=== PATIENT | male | born 1960 | race Caucasian/White ===

== ENCOUNTER 2016-09-20 18:55 | Emergency (ER) | payer OTHER ==
[2016-09-20] MEDS ORDERED: Sodium Chloride 0.9% 1000 ML 1,000 ML IV STA (19:30)
[2016-09-20] MEDS ORDERED: solu-MEDROL 125 MG IV ONE (19:30)
[2016-09-20] MEDS ORDERED: BENADRYL 50 MG/ML IM ONE (19:30)
[2016-09-20] MEDS ORDERED: solu-MEDROL 125 MG ONE (19:33)
[2016-09-20] MEDS ORDERED: BENADRYL 50 MG/ML ONE (19:33)
[2016-09-20] MEDS ORDERED: Sodium Chloride 0.9% 1000 ML 1,000 ML ONE (19:34)
--- NOTE | 2016-09-20 19:38 | ERPHSYRPT ---
- History of Present Illness Time Seen by Provider: 09/20/16 19:27 Source: patient Exam Limitations: no limitations Patient Subjective Stated Complaint: pt states he was out mowing the yard today and thinks he got bit by a bug. states he has had pins and needles sensation in his lip where he has swelling. Triage Nursing Assessment: pt alert and oriented, answers qeustions approp. pt ambulatory with steady gait noted. respirations nonlabored with lungs cta. mild swelling noted to rt upper lip. Physician History: 56-year-old white male arrives with complaint of swelling of his right upper lip and feeling tingling across his upper body since approximately one hour ago patient states he was mowing he went to shower and that he began to have the above symptoms he is noted to have swelling in his right upper lip he feels like he perhaps has been bitten by something. Patient has not had any problems moving he has no chest pain he states he has a tingling sensation across his upper body including his head is not having any speech problems he has not had any chest pain. He is not short of breath Past medical history includes hypercholesterolemia, anxiety, depression, high blood presure Past surgical history includes hemorrhoidectomy and appendectomy Timing/Duration: today (one hour prior to arrival) Modifying Factors: Improves With: other (patient was out mowing today prior to onset of symptoms) Associated Symptoms: malaise, other (swelling right upper lip, feels leg tingling upper body), No nausea, No vomiting, No abdominal pain, No shortness of breath, No heartburn, No cough, No chills, No chest pain, No fever, No headaches, No loss of appetite, No rash, No syncope, No seizure, No weakness Allergies/Adverse Reactions: No Known Drug Allergies Allergy (Verified 09/20/16 19:12) Home Medications: Aspirin [Aspirin EC] 81 mg PO DAILY 12/05/14 [History] Glyburide 5 mg [Micronase 5 MG] 0 mg PO BID 09/20/16 [History] Lisinopril 10 mg [Zestril 10 MG] 0 mg PO DAILY 09/20/16 [History] Hx Tetanus, Diphtheria Vaccination/Date Given: Yes Hx Influenza Vaccination/Date Given: No Hx Pneumococcal Vaccination/Date Given: Yes Immunizations Up to Date: Yes - Review of Systems Constitutional: No Fever, No Chills Eyes: No Symptoms Ears, Nose, & Throat: Other (swelling right upper lip), No Ear Pain, No Ear Discharge, No Hearing Changes, No Tinnitus, No Nose Pain, No Nose Congestion, No Nose Discharge, No Sinus Drainage, No Epistaxis, No Mouth Pain, No Mouth Swelling, No Loose Teeth, No Throat Pain, No Throat Swelling, No Hoarse, No Painful Swallowing, No Snoring, No Stridor Respiratory: No Cough, No Dyspnea Cardiac: No Chest Pain, No Edema, No Syncope Abdominal/Gastrointestinal: No Abdominal Pain, No Nausea, No Vomiting, No Diarrhea Genitourinary Symptoms: No Dysuria Musculoskeletal: No Back Pain, No Neck Pain Skin: No Rash Neurological: Other (tingling sensation upper body), No Dizziness, No Focal Weakness, No Gait Changes, No Headache, No Irritability, No Lethargy, No Paralysis, No Parasthesia, No Seizure, No Sensory Changes, No Speech Changes, No Tics, No Tremors, No Vertigo Psychological: No Symptoms Endocrine: No Symptoms All Other Systems: Reviewed and Negative - Past Medical History Pertinent Past Medical History: Yes Neurological History: No Pertinent History ENT History: No Pertinent History Cardiac History: High Cholesterol, Hypertension Respiratory History: No Pertinent History Endocrine Medical History: No Pertinent History Musculoskeletal History: No Pertinent History GI Medical History: Hemorrhoids History: No Pertinent History Psycho-Social History: Anxiety, Depression Male Reproductive Disorders: No Pertinent History - Past Surgical History Past Surgical History: Yes Neuro Surgical History: No Pertinent History Cardiac: No Pertinent History Respiratory: No Pertinent History Gastrointestinal: Appendectomy, Hemorrhoidectomy Genitourinary: No Pertinent History Musculoskeletal: No Pertinent History Male Surgical History: No Pertinent History - Social History Smoking Status: Never smoker Exposure to second hand smoke: No Drug Use: none Patient Lives Alone: Yes - Nursing Vital Signs Nursing Vital Signs: Initial Vital Signs Temperature 98.0 F Temperature Source Oral Pulse Rate 84 Respiratory Rate 18 Blood Pressure [Right Arm] 136/86 Pain Intensity 0 - Physical Exam General Appearance: no apparent distress, alert Eye Exam: PERRL/EOMI, eyes nml inspection Ears, Nose, Throat Exam: TMs normal, pharynx normal, moist mucous membranes, other (slight swelling right upper lip), No dry mucous membranes, No TM abnormal (R), No TM abnormal (L), No pharyngeal erythema, No tonsillar exudate Neck Exam: normal inspection, non-tender, supple, full range of motion Respiratory Exam: normal breath sounds, lungs clear, No respiratory distress Cardiovascular Exam: regular rate/rhythm, normal heart sounds, normal peripheral pulses Gastrointestinal/Abdomen Exam: soft, normal bowel sounds, No tenderness, No mass Back Exam: normal inspection, normal range of motion, No CVA tenderness, No vertebral tenderness Extremity Exam: normal inspection, normal range of motion, pelvis stable Neurologic Exam: alert, oriented x 3, cooperative, normal mood/affect, nml cerebellar function, nml station & gait, sensation nml, other (finger to nose within normal limits, user experience architect are equal and symmetrical 5/5 no pronator drift speech is normal, sensation intact to all extremities no motor deficits), No motor deficits Skin Exam: normal color, warm, dry, No rash Lymphatic Exam: No adenopathy SpO2 Interpretation: normal (96%) SpO2: 96 Oxygen Delivery: Room Air - Course Nursing assessment & vital signs reviewed: Yes EKG Interpreted by Me: RATE (77 bpm), Sinus Rhythm, NORMAL AXIS, Other (EKG, sinus rhythm, 77 beats per minute, normal axis, no acute ST or T wave changes, compared to December 05, 2014) Ordered Tests: Active Orders 24 hr Category Date Time Status EKG-ER Only STAT Care 09/20/16 19:30 Active IV Insertion STAT Care 09/20/16 19:30 Active BMP Stat Lab 09/20/16 19:55 Completed CBC W DIFF Stat Lab 09/20/16 19:55 Completed TROPONIN Stat Lab 09/20/16 19:55 Completed Medication Summary Discontinued Medications Generic Name Dose Route Start Last Admin Trade Name Stoney PRN Reason Stop Dose Admin Diphenhydramine HCl 50 mg 09/20/16 19:30 09/20/16 19:38 Benadryl 50 Mg/Ml IM 09/20/16 19:31 50 mg STAT ONE Administration Diphenhydramine HCl Confirm 09/20/16 19:33 Benadryl 50 Mg/Ml Administered 09/20/16 19:34 Dose 50 mg .ROUTE .STK-MED ONE Sodium Chloride 1,000 mls @ 999 mls/hr 09/20/16 19:30 09/20/16 19:38 Sodium Chloride 0.9% 1000 Ml IV 09/20/16 20:30 999 mls/hr .Q1H1M STA Administration Sodium Chloride Confirm 09/20/16 19:34 Sodium Chloride 0.9% 1000 Ml Administered 09/20/16 19:35 Dose 1,000 mls @ ud .ROUTE .STK-MED ONE Methylprednisolone Sodium Succinate 125 mg 09/20/16 19:30 09/20/16 19:39 Solu-Medrol 125 Mg IV 09/20/16 19:31 125 mg STAT ONE Administration Methylprednisolone Sodium Succinate Confirm 09/20/16 19:33 Solu-Medrol 125 Mg Administered 09/20/16 19:34 Dose 125 mg .ROUTE .STK-MED ONE Lab/Rad Data: Laboratory Result Diagrams 09/20/16 19:55 09/20/16 19:55 Laboratory Results 09/20/16 09/20/16 09/20/16 Range/Units 19:55 19:55 19:55 WBC 8.5 (4.0-10.5) K/mm3 RBC 4.87 (4.1-5.6) M/mm3 Hgb 14.7 (12.5-18.0) gm/dl Hct 43.3 (42-50) % MCV 88.9 (78-100) fl MCH 30.2 (26-32) pg MCHC 33.9 (32-36) g/dl RDW 13.6 (11.5-14.0) % Plt Count 211 (150-450) K/mm3 MPV 10.3 H (6-9.5) fl Gran % 52.6 (36.0-66.0) % Lymphocytes % 33.7 (24.0-44.0) % Monocytes % 9.7 (0.0-12.0) % Eosinophils % 3.6 (0.00-5.0) % Basophils % 0.4 (0.0-0.4) % Basophils # 0.03 (0-0.4) Sodium 140 (136-145) mEq/L Potassium 4.2 (3.5-5.1) mEq/L Chloride 104 (98-107) mEq/L Carbon Dioxide 29.2 (21-32) mEq/L Anion Gap 10.8 (5-15) MEQ/L BUN 15 (9-20) mg/dL Creatinine 1.19 (0.55-1.30) mg/dl Estimated GFR > 60 ML/MIN Glucose 230 H (70-110) MG/DL Calcium 9.0 (8.5-10.1) mg/dL Troponin I < 0.017 (0.000-0.056) ng/ml - Progress Progress: improved Progress Note: 09/20/16 19:36 56-year-old white male arrives with complaint of swelling of the upper lip he states that he was out mowing today he went in the shower and as noted that his right upper lip was swollen he started having tingling on his upper body is not having any chest pain no shortness of breath he is not vomiting he has no movement disorder speech disorder Patient does have a mild amount of swelling in the upper lip he feels perhaps she was bitten by something. Will go ahead and give patient IV fluids have nurses check orthostatic vital signs check CBC BMP and troponin Will give patient Benadryl and Solu-Medrol 09/20/16 20:33 Patient's labs are all normal except exception of a glucose of 230 patient states he has a history of diabetes. Patient was given one shot of Solu-Medrol Also given Benadryl 50 mg IM Patient states he had a second of sharp pain on the top of his head no other symptoms neurologically the patient is normal. I've discussed the patient's laboratory findings with him he has received IV fluids he is stable EKG is normal troponin is normal. I asked patient if there is anything else I could do for him. He doesn't want anything Will discharge patient Benadryl 25-50 mg orally every 6 hours plenty of fluids Tylenol every 4-6 hours as needed for pain. Cold packs to the right lip 24-48 hours (intermittent0 Follow-up with Dr. Crabtree his family doctor. Return for acute distress or for severe symptoms. - Departure Time of Disposition: 20:35 Departure Disposition: Home Clinical Impression: swelling right upper lip, Insect bite right upper lip, Paresthesia Condition: Fair Critical Care Time: No Instructions: Insect Bites and Stings Additional Instructions: Return home. Cold packs right upper lip 24-48 hours. Benadryl 25-50 mg orally every 6 hours as needed. Plenty of fluids. Follow-up with your family doctor. Return for acute distress or for severe symptoms.Will one more Tylenol every 4 hours as needed forpain.
[2016-09-20 19:59] LABS: BASOPHIL % 0.4 % (0.0-0.4); Eosinophil % 3.6 % (0.00-5.0); Granulocytes % 52.6 % (36.0-66.0); Lymphocytes % 33.7 % (24.0-44.0); Mean Cell Volume 88.9 fl (78-100); Mean Corpuscular Hemoglobin 30.2 pg (26-32); Mean Platelet Volume 10.3 fl (6-9.5); Monocytes % 9.7 % (0.0-12.0); Platelet Count 211 K/mm3 (150-450); Red Blood Count 4.87 M/mm3 (4.1-5.6); Red Cell Distribution Width 13.6 % (11.5-14.0); White Blood Count 8.5 K/mm3 (4.0-10.5)
[2016-09-20 20:17] LABS: ANION GAP 10.8 MEQ/L (5-15); BLOOD UREA NITROGEN 15 mg/dL (9-20); CHLORIDE 104 mEq/L (98-107); Carbon Dioxide 29.2 mEq/L (21-32); Glucose 230 MG/DL (70-110); Potassium 4.2 mEq/L (3.5-5.1); SODIUM 140 mEq/L (136-145)
[2016-09-20 20:45] VITALS: BP 122/70; PULSE 75; O2SAT 100
== END 2016-09-20 20:45 | disposition home or self-care (01) ==
LOC: ED 18:55
DX: S00.561A Insect bite (nonvenomous) of lip, initial encounter (principal); W57.XXXA Bitten or stung by nonvenomous insect and other nonvenomous arthropods, initial encounter; R22.9 Localized swelling, mass and lump, unspecified; R20.9 Unspecified disturbances of skin sensation
CPT/HCPCS: 36000; 36415; 80048; 84484; 85025; 93005; 96360; 96372; 96374; 99284; J1200; J2930

== ENCOUNTER 2020-11-13 07:49 | Observation (INO) | payer MEDICAID ==
[2020-11-13] MEDS ORDERED: BABY ASPIRIN 81 MG CHEW PO ONE (08:05)
--- NOTE | 2020-11-13 08:09 | ERPHSYRPT ---
- History of Present Illness Time Seen by Provider: 11/13/20 07:51 Historian: patient Exam Limitations: no limitations Patient Subjective Stated Complaint: pt here for chest pain to left side of chest this am while driving to work, he states pain is gone now Triage Nursing Assessment: pt alert, resp easy, face mask in place, skin w/d/p Physician History: 60 years old male with history of hypertension, hyperlipidemia, diabetes mellitus presented in the ER with sudden onset left-sided chest pain almost 3 hours ago while he was walking at home and later while driving to work without any radiation, feeling of tightness pressure in the chest and started to improve on its own and currently not having any chest pain. Denies any associated nausea palpitations or shortness of breath. No cardiac work-up done in the [facility]. Timing/Duration: hour(s) (3), sudden, improved Activities at Onset: activity Quality: pressure Chest Pain Radiation: no radiation Severity of Pain-Max: moderate Severity of Pain-Current: none Modifying Factors: Improves With: nothing Associated Symptoms: denies symptoms Prior Chest Pain/Cardiac Workup: no prior cardiac workup Nitro Today/Relief: no nitro taken today Aspirin Treatment Today: 81 mg x 1 Allergies/Adverse Reactions: No Known Drug Allergies Allergy (Verified 11/13/20 07:57) Home Medications: Aspirin [Aspirin EC] 81 mg PO DAILY 12/05/14 [History] Lisinopril 10 mg [Zestril 10 MG] 0 mg PO DAILY 09/20/16 [History] Metoprolol Succinate [Toprol Xl] 1 ea DAILY 11/13/20 [History] Hx Tetanus, Diphtheria Vaccination/Date Given: No Hx Influenza Vaccination/Date Given: No Hx Pneumococcal Vaccination/Date Given: No Immunizations Up to Date: Yes Travel Risk - International Travel Have you traveled outside of the country in past 3 weeks: No - Coronavirus Screening Are you exhibiting any of the following symptoms?: No Close contact with a COVID-19 positive Pt in past 14-21 Days: No - Vaccine Status Have you recieved a Covid-19 vaccination: No - Review of Systems Constitutional: No Symptoms Eyes: No Symptoms Ears, Nose, & Throat: No Symptoms Respiratory: No Symptoms Cardiac: Chest Pain Abdominal/Gastrointestinal: No Symptoms Genitourinary Symptoms: No Symptoms Musculoskeletal: No Symptoms Skin: No Symptoms Neurological: No Symptoms Psychological: No Symptoms Endocrine: No Symptoms Hematologic/Lymphatic: No Symptoms Immunological/Allergic: No Symptoms - Past Medical History Pertinent Past Medical History: Yes Neurological History: No Pertinent History ENT History: No Pertinent History Cardiac History: High Cholesterol, Hypertension Respiratory History: No Pertinent History Endocrine Medical History: No Pertinent History Musculoskeletal History: No Pertinent History GI Medical History: Hemorrhoids History: No Pertinent History Psycho-Social History: Anxiety, Depression Male Reproductive Disorders: No Pertinent History - Past Surgical History Past Surgical History: Yes Neuro Surgical History: No Pertinent History Cardiac: No Pertinent History Respiratory: No Pertinent History Gastrointestinal: Appendectomy Genitourinary: No Pertinent History Musculoskeletal: No Pertinent History Male Surgical History: No Pertinent History - Social History Smoking Status: Never smoker Exposure to second hand smoke: No Drug Use: none Patient Lives Alone: Yes - Nursing Vital Signs Nursing Vital Signs: Initial Vital Signs Temperature 96.8 F 11/13/20 07:51 Pulse Rate 64 11/13/20 07:51 Respiratory Rate 18 11/13/20 07:51 Blood Pressure 125/76 11/13/20 07:51 O2 Sat by Pulse Oximetry 98 11/13/20 07:51 Pain Scale Pain Intensity 0 - Physical Exam General Appearance: no apparent distress, alert Eye Exam: PERRL/EOMI, eyes nml inspection Ears, Nose, Throat Exam: normal ENT inspection, pharynx normal Neck Exam: normal inspection, non-tender, supple, full range of motion Respiratory Exam: normal breath sounds, lungs clear Cardiovascular Exam: regular rate/rhythm, normal heart sounds Gastrointestinal/Abdomen Exam: soft, No tenderness Back Exam: normal inspection, normal range of motion Extremity Exam: normal inspection, normal range of motion Neurologic Exam: alert, oriented x 3, cooperative Skin Exam: normal color SpO2 Interpretation: normal SpO2: 98 O2 Delivery: Room Air - Course EKG Interpreted by Me: RATE (64), Sinus Rhythm, NORMAL AXIS, NORMAL INTERVALS, NORMAL QRS Ordered Tests: Active Orders 24 hr Category Date Time Status E/M Engineer STAT Care 11/13/20 08:06 Active EKG-ER Only STAT Care 11/13/20 08:05 Active IV Insertion STAT Care 11/13/20 08:05 Active CHEST 1 VIEW (PORTABLE) Stat Exams 11/13/20 08:06 Completed CBC W DIFF Stat Lab 11/13/20 08:00 Completed CMP Stat Lab 11/13/20 08:00 Completed NT PRO BNP Stat Lab 11/13/20 08:00 Completed TROPONIN Q3H Lab 11/13/20 08:00 Completed TROPONIN Q3H Lab 11/13/20 11:09 Received TROPONIN Q3H Lab 11/13/20 14:15 Ordered TROPONIN Q3H Lab 11/13/20 17:15 Ordered TROPONIN Q3H Lab 11/13/20 20:15 Ordered Transfer Order Routine Transfer 11/13/20 Ordered Medication Summary Discontinued Medications Generic Name Dose Route Start Last Admin Trade Name Stoney PRN Reason Stop Dose Admin Aspirin 243 mg 11/13/20 08:05 11/13/20 08:14 Baby Aspirin 81 Mg Chew PO 11/13/20 08:06 243 mg STAT ONE Administration Lab/Rad Data: Laboratory Result Diagrams 11/13/20 08:00 11/13/20 08:00 Laboratory Results 11/13/20 11/13/20 11/13/20 Range/Units 09:56 08:00 08:00 WBC (4.0-10.5) K/mm3 RBC (4.1-5.6) M/mm3 Hgb (12.5-18.0) gm/dl Hct (42-50) % MCV (78-100) fl MCH (26-32) pg MCHC (32-36) g/dl RDW (11.5-14.0) % Plt Count (150-450) K/mm3 MPV (7.5-11.0) fl Gran % (36.0-66.0) % Eos # (Auto) (0-0.5) Absolute Lymphs (auto) (1.0-4.6) Absolute Monos (auto) (0.0-1.3) Lymphocytes % (24.0-44.0) % Monocytes % (0.0-12.0) % Eosinophils % (0.00-5.0) % Basophils % (0.0-0.4) % Absolute Granulocytes (1.4-6.9) Basophils # (0-0.4) Sodium 138 (137-145) mmol/L Potassium 4.2 (3.5-5.1) mmol/L Chloride 104 (98-107) mmol/L Carbon Dioxide 23 (22-30) mmol/L Anion Gap 15.2 H (5-15) MEQ/L BUN 13 (9-20) mg/dL Creatinine 0.77 (0.66-1.25) mg/dL Estimated GFR > 60.0 ML/MIN Glucose 141 H (74-106) mg/dL Calcium 8.8 (8.4-10.2) mg/dL Total Bilirubin 0.50 (0.2-1.3) mg/dL AST 33 (17-59) U/L ALT 20 (0-50) U/L Alkaline Phosphatase 55 (38-126) U/L Troponin I < 0.012 (0.000-0.034) ng/mL NT-Pro-B Natriuret Pep 70.3 (0-900) pg/mL Serum Total Protein 7.8 (6.3-8.2) g/dL Albumin 4.0 (3.5-5.0) g/dL SARS-CoV-2 (PCR) NEGATIVE (NEGATIVE) 11/13/20 Range/Units 08:00 WBC 6.9 (4.0-10.5) K/mm3 RBC 4.89 (4.1-5.6) M/mm3 Hgb 15.1 (12.5-18.0) gm/dl Hct 45.4 (42-50) % MCV 92.8 (78-100) fl MCH 30.9 (26-32) pg MCHC 33.3 (32-36) g/dl RDW 13.3 (11.5-14.0) % Plt Count 235 (150-450) K/mm3 MPV 10.3 (7.5-11.0) fl Gran % 60.3 (36.0-66.0) % Eos # (Auto) 0.26 (0-0.5) Absolute Lymphs (auto) 1.76 (1.0-4.6) Absolute Monos (auto) 0.68 (0.0-1.3) Lymphocytes % 25.7 (24.0-44.0) % Monocytes % 9.9 (0.0-12.0) % Eosinophils % 3.8 (0.00-5.0) % Basophils % 0.3 (0.0-0.4) % Absolute Granulocytes 4.14 (1.4-6.9) Basophils # 0.02 (0-0.4) Sodium (137-145) mmol/L Potassium (3.5-5.1) mmol/L Chloride (98-107) mmol/L Carbon Dioxide (22-30) mmol/L Anion Gap (5-15) MEQ/L BUN (9-20) mg/dL Creatinine (0.66-1.25) mg/dL Estimated GFR ML/MIN Glucose (74-106) mg/dL Calcium (8.4-10.2) mg/dL Total Bilirubin (0.2-1.3) mg/dL AST (17-59) U/L ALT (0-50) U/L Alkaline Phosphatase (38-126) U/L Troponin I (0.000-0.034) ng/mL NT-Pro-B Natriuret Pep (0-900) pg/mL Serum Total Protein (6.3-8.2) g/dL Albumin (3.5-5.0) g/dL SARS-CoV-2 (PCR) (NEGATIVE) - Progress Progress: improved Air Movement: good Progress Note: 11/13/20 09:49 EKG is normal sinus rhythm. Patient is given 243 aspirin as he has 81 mg prior to arrival. Initial troponins are negative. Chest x-ray negative for any acute cardiopulmonary findings. Grossly unremarkable chemistries. Discussed with Dr. Melara, patient is being admitted for trending cardiac enzyme and further work-up. Blood Culture(s) Obtained: No Antibiotics given: No Discussed with : Romulo Will see patient in: hospital (observation) Counseled pt/family regarding: lab results, diagnosis, rad results - Departure Departure Disposition: Observation Clinical Impression: Chest pain, rule out acute myocardial infarction Condition: Stable Critical Care Time: No Referrals: AVE MELARA [Primary Care Provider] -
[2020-11-13 08:14] LABS: Absolute Neutrophil Ct (ANC) 4.14 (1.4-6.9); BASOPHIL % 0.3 % (0.0-0.4); Basophil (Absolute #) 0.02 (0-0.4); Eosinophil % 3.8 % (0.00-5.0); Eosinophil (Absolute #) 0.26 (0-0.5); Hematocrit 45.4 % (42-50); Hemoglobin 15.1 gm/dl (12.5-18.0); Lymphocyte (Absolute #) 1.76 (1.0-4.6); Lymphocytes % 25.7 % (24.0-44.0); Mean Cell Volume 92.8 fl (78-100); Mean Corpuscular Hemoglobin 30.9 pg (26-32); Mean Corpuscular Hgb Concent. 33.3 g/dl (32-36); Mean Platelet Volume 10.3 fl (7.5-11.0); Monocyte (Absolute #) 0.68 (0.0-1.3); Monocytes % 9.9 % (0.0-12.0); Neutrophil % 60.3 % (36.0-66.0); Platelet Count 235 K/mm3 (150-450); Red Blood Count 4.89 M/mm3 (4.1-5.6); Red Cell Distribution Width 13.3 % (11.5-14.0); White Blood Count 6.9 K/mm3 (4.0-10.5)
[2020-11-13 08:38] LABS: ALKALINE PHOSPHATASE 55 U/L (38-126); BLOOD UREA NITROGEN 13 mg/dL (9-20); CHLORIDE 104 mmol/L (98-107); Calcium 8.8 mg/dL (8.4-10.2); Carbon Dioxide 23 mmol/L (22-30); Creatinine 1 0.77 mg/dL (0.66-1.25); EST GLOMERULAR FILTRATION RATE > 60.0 ML/MIN; Glucose 141 mg/dL (74-106); NT PRO BNP 70.3 pg/mL (0-900); Potassium 4.2 mmol/L (3.5-5.1); SGOT/AST 33 U/L (17-59); SGPT/ALT 20 U/L (0-50); Total Protein 7.8 g/dL (6.3-8.2)
[2020-11-13 08:55] LABS: SODIUM 138 mmol/L (137-145)
--- NOTE | 2020-11-13 09:11 | XRAY ---
Indication: Chest pain. Comparison: December 05, 2014. Portable apical lordotic chest remains clear. Heart not enlarged. Bony thorax intact. No new/acute findings.
[2020-11-13 09:48] LABS: ANION GAP 15.2 MEQ/L (5-15)
[2020-11-13 12:27] VITALS: PULSE 66; O2SAT 97
[2020-11-13] MEDS ORDERED: TYLENOL 325 MG PO PRN (12:44)
[2020-11-13] MEDS ORDERED: HUMALOG SQ PRN (12:44)
[2020-11-13] MEDS ORDERED: DUONEB 0.5-3 MG/3 ml Neb IH PRN (12:44)
[2020-11-13] MEDS ORDERED: Zofran 4 MG/2 ML VIAL IV PRN (12:44)
[2020-11-13] MEDS ORDERED: Pepcid 20 MG VIAL IV SCH (12:44)
[2020-11-13] MEDS ORDERED: MORPHINE SULFATE 2 MG INJ IV PRN (12:44)
[2020-11-13 13:27] VITALS: BP 122/72
--- NOTE | 2020-11-13 15:44 | SSS ---
ADMISSION DIAGNOSIS: Chest pain. DISCHARGE DIAGNOSIS: CHEST WALL PAIN. HISTORY: The patient is a 60 year-old white male patient who reports that he was having some chest discomfort in the left upper side in the pectoralis area that lasted for about 2 hours and went away on its own. By the time he reached the emergency room he was pain free. The patient reports that he has been having intermittent pains that he has been experiencing since he is now at work and he is working differently than he has in the past and he really thinks that doing the dishes at work is causing his issues and I tend to agree from what I have heard from the patient and no previous history of any heart issues. He has mild hypertension. PAST MEDICAL/SURGICAL HISTORY: The patient's past medical history is otherwise noncontributory. MEDICATIONS: He is on enteric coated aspirin 81 mg daily, lisinopril 10 mg a day, metoprolol XL 25 mg a day. ALLERGIES: NKDA. FAMILY HISTORY: Noncontributory. PHYSICAL EXAMINATION: His vital signs show temperature 96.8F, pulse 64, respiratory rate 18 and blood pressure 125/76. O2 saturation 98%. HEENT: Normocephalic, atraumatic. Pupils equal round reactive to light. Extraocular movements intact. Oropharynx is pink and moist. NECK: Supple without lymphadenopathy, thyromegaly or JVD. CHEST: Clear to auscultation with good air movement bilaterally. HEART: Regular rate and rhythm without murmurs, rubs or gallops. ABDOMEN: Soft. No palpable masses. EXTREMITIES: Without cyanosis, clubbing or edema. LAB DATA AND TESTS: The patient's laboratory studies have shown normal CBC. His metabolic panel showed a nonfasting sugar at 141 but otherwise entirely normal with a BUN of 13, creatinine 0.77. His liver enzymes were normal. ProBNP was normal. His troponins at this time x3 have been less than 0.12. He had x-rays showing no acute findings. His EKG 12-lead showed what appears to be left axis deviation but otherwise no acute ST-T findings and good R-wave progression across the precordial lead, essentially no acute changes were noted either. HOSPITAL COURSE: The patient has been monitored for the past several hours with again negative troponins x3 and currently with no chest pain whatsoever. He was felt to be ready for discharge home again with the likely diagnosis of chest wall pain. However, we will increase his metoprolol to 50 mg a day and give him sublingual nitroglycerin to use on a PRN basis. We will see him in the office in three days in follow up at which time we will decide whether we want to move forward with any other cardiac testing. The patient was asked not to work until he is seen again in the office on Monday. He is return to the hospital if he has any chest pain that was not taken care of by the sublingual nitroglycerin particularly if he had heaviness in the chest, pressure with any radiation, sweats or nausea.
== END 2020-11-13 16:20 | disposition home or self-care (01) ==
LOC: ED 07:49 → MED SURG 12:36
PROVIDERS: ADMIT Family Medicine; ATTEND Family Medicine
DX: R07.89 Other chest pain (principal); I10 Essential (primary) hypertension; E11.9 Type 2 diabetes mellitus without complications; E78.5 Hyperlipidemia, unspecified; Z79.899 Other long term (current) drug therapy; E78.00 Pure hypercholesterolemia, unspecified; Z20.828 Contact with and (suspected) exposure to other viral communicable diseases
CPT/HCPCS: 36000; 36415; 71045; 80053; 83880; 84484; 85025; 93005; 93041; 99285; U0003; 93268; A9270-GY; G0378

== ENCOUNTER 2024-08-09 10:21 | Emergency (ER) | payer SELFPAY ==
--- NOTE | 2024-08-09 10:24 | ERPHSYRPT ---
- History of Present Illness Time Seen by Provider: 08/09/24 10:24 Historian: patient, family Exam Limitations: no limitations Physician History: This is a 63-year-old white male patient brought to the urgent care center by the patient's sister. The patient's primary care provider is Dr. Melara. The patient's sister provided additional, independent history. The reason why the patient was brought to the urgent care center is that he was vomiting in the last couple of days. Patient's sister states that it was not because he was confused although the confusion was a little bit more than usual beginning yesterday. She states that now, in the emergency department, the patient is more at his baseline. Patient did tell his sister that his head was numb yesterday afternoon around 2 or 3:00 in the afternoon. He denies head injury. Patient has a history of diabetes and hyperlipidemia. He denies abdominal pain. He denies chest pain. He denies shortness of breath. Timing/Duration: today Activities at Onset: none Abdominal Pain Onset Location: other (No abdominal pain) Severity of Pain-Max: none Severity of Pain-Current: none Modifying Factors: Improves With: vomiting Associated Symptoms: loss of appetite, nausea, vomiting, weakness, No denies symptoms, No back, No chest pain, No diarrhea, No headache, No shortness of breath Previous symptoms: no prior history, no recent treatment Allergies/Adverse Reactions: No Known Drug Allergies Allergy (Verified 08/09/24 10:30) Home Medications: Aspirin [Aspirin EC] 81 mg PO DAILY 12/05/14 [History] Lisinopril 10 mg [Zestril 10 MG] 10 mg PO DAILY 09/20/16 [History] Canagliflozin [Invokana] 100 mg PO DAILY 11/17/22 [History] Glyburide 5 mg [Micronase 5 MG] 5 mg PO BID 11/17/22 [History] Isosorbide Mononitrate [Isosorbide Mononitrate ER] 30 mg PO DAILY 11/17/22 [History] Simvastatin 10 mg [Zocor 10MG] 10 mg PO DAILY 11/17/22 [History] Hx Tetanus, Diphtheria Vaccination/Date Given: No Hx Influenza Vaccination/Date Given: Yes Hx Pneumococcal Vaccination/Date Given: No Travel Risk - International Travel Have you traveled outside of the country in past 3 weeks: No - Emerging Infectious Disease Are you exhibiting symptoms associated with any current EIDs: Yes Symptoms: Vomitting - Review of Systems Eyes: No Symptoms Ears, Nose, & Throat: No Symptoms Respiratory: No Symptoms Cardiac: No Symptoms Abdominal/Gastrointestinal: Nausea, Vomiting, Appetite Changes, No Abdominal Pain Genitourinary Symptoms: No Symptoms Musculoskeletal: No Symptoms Skin: No Symptoms Neurological: No Symptoms Psychological: No Symptoms Endocrine: No Symptoms Hematologic/Lymphatic: No Symptoms Immunological/Allergic: No Symptoms All Other Systems: Reviewed and Negative - Past Medical History Pertinent Past Medical History: Yes Neurological History: Other ENT History: No Pertinent History Cardiac History: Coronary Artery Disease, High Cholesterol, Hypertension Respiratory History: No Pertinent History Endocrine Medical History: No Pertinent History Musculoskeletal History: No Pertinent History GI Medical History: Hemorrhoids History: No Pertinent History Psycho-Social History: Anxiety, Depression Male Reproductive Disorders: No Pertinent History Other Medical History: memory issues in the last few years. pt poor historian about medications - Past Surgical History Past Surgical History: Yes Neuro Surgical History: No Pertinent History Cardiac: No Pertinent History Respiratory: No Pertinent History Gastrointestinal: Appendectomy Genitourinary: No Pertinent History Musculoskeletal: No Pertinent History Male Surgical History: No Pertinent History - Social History Smoking Status: Former smoker Exposure to second hand smoke: No Drug Use: none Patient Lives Alone: Yes - Nursing Vital Signs Nursing Vital Signs: Initial Vital Signs Temperature 97.8 F 08/09/24 10:30 Pulse Rate 79 08/09/24 10:30 Respiratory Rate 14 08/09/24 10:30 Blood Pressure 130/83 08/09/24 10:30 O2 Sat by Pulse Oximetry 94 L 08/09/24 10:30 Pain Scale Pain Intensity 0 - Physical Exam General Appearance: no apparent distress, alert Eye Exam: PERRL/EOMI, eyes nml inspection Ears, Nose, Throat Exam: normal ENT inspection, moist mucous membranes Neck Exam: normal inspection, non-tender, supple, full range of motion Respiratory Exam: normal breath sounds, lungs clear, airway intact, No chest tenderness Cardiovascular Exam: regular rate/rhythm, normal heart sounds, normal peripheral pulses Gastrointestinal/Abdomen Exam: soft, normal bowel sounds, No tenderness Rectal Exam: not done Back Exam: normal inspection, normal range of motion, No CVA tenderness, No vertebral tenderness Extremity Exam: normal inspection, normal range of motion, pelvis stable Neurologic Exam: alert, oriented x 3, cooperative, electronic imaging system operator II-XII nml as tested, nml cerebellar function, nml station & gait, sensation nml Skin Exam: normal color, warm, dry Lymphatic Exam: No adenopathy SpO2 Interpretation: normal O2 Delivery: Room Air - Course Nursing assessment & vital signs reviewed: Yes Ordered Tests: Active Orders 24 hr Category Date Time Status IV Insertion STAT Care 08/09/24 10:29 Active HEAD WITHOUT CONTRAST [CT] Stat Exams 08/09/24 10:30 Completed AMYLASE Stat Lab 08/09/24 10:45 Completed CBC W DIFF Stat Lab 08/09/24 10:45 Completed CMP Stat Lab 08/09/24 10:45 Completed LIPASE Stat Lab 08/09/24 10:45 Completed Lactic Acid Stat Lab 08/09/24 10:38 Completed POCT GLUCOSE Stat Lab 08/09/24 10:32 Completed UA W/RFX UR CULTURE Stat Lab 08/09/24 13:17 Completed Medication Summary Discontinued Medications Generic Name Dose Route Start Last Admin Trade Name Stoney PRN Reason Stop Dose Admin Sodium Chloride 1,000 mls @ 999 mls/hr 08/09/24 10:29 08/09/24 11:54 Sodium Chloride 0.9% 1000 Ml IV 08/09/24 11:29 Infused .Q1H1M STA Infusion Sodium Chloride Confirm 08/09/24 10:51 Sodium Chloride 0.9% 1000 Ml Administered 08/09/24 10:52 Dose 1,000 mls @ ud .ROUTE .STK-MED ONE Sodium Chloride 500 mls @ 500 mls/hr 08/09/24 12:32 08/09/24 13:38 Sodium Chloride 0.9% 500 Ml IV 08/09/24 13:31 Infused .Q1H ONE Infusion Sodium Chloride Confirm 08/09/24 12:34 Sodium Chloride 0.9% 500 Ml Administered 08/09/24 12:35 Dose 500 mls @ ud IV .STK-MED ONE Ondansetron HCl 4 mg 08/09/24 10:29 08/09/24 10:55 Ondansetron Hcl 4 Mg/2 Ml Vial IV 08/09/24 10:30 Not Given STAT ONE Lab/Rad Data: Laboratory Result Diagrams 08/09/24 10:45 08/09/24 10:45 Laboratory Results 08/09/24 08/09/24 08/09/24 Range/Units 13:17 10:45 10:45 WBC 10.3 H (4.23-9.07) x10^3/uL RBC 5.02 (4.63-6.08) x10^6/uL Hgb 15.4 (13.7-17.5) g/dL Hct 45.4 (40.1-51.0) % MCV 90.4 (79.0-92.2) fL MCH 30.7 (25.7-32.2) pg MCHC 33.9 (32.3-36.5) g/dL RDW 12.8 (11.6-14.4) % Plt Count 196 (163-337) x10^3/uL MPV 10.7 (9.4-12.4) fL Gran % 78.2 H (34.0-67.9) % Immature Gran % (Auto) 0.2 (0.001-0.429) % Nucleat RBC Rel Count 0.0 (0.00-0.2) % Eos # (Auto) 0.05 (0.04-0.54) x10^3/uL Immature Gran # (Auto) 0.02 (0.001-0.031) x10^3u/L Absolute Lymphs (auto) 1.38 (1.32-3.57) x10^3/uL Absolute Monos (auto) 0.74 (0.30-0.82) x10^3/uL Absolute Nucleated RBC 0.00 (0.00-0.012) x10^3u/L Lymphocytes % 13.4 L (21.8-53.1) % Monocytes % 7.2 (5.3-12.2) % Eosinophils % 0.5 L (0.8-7.0) % Basophils % 0.5 (0.2-1.2) % Absolute Granulocytes 8.04 H (1.78-5.38) x10^3/uL Basophils # 0.05 (0.01-0.08) x10^3/uL Sodium 141 (135-145) mmol/L Potassium 4.0 (3.5-5.1) mmol/L Chloride 103 (98-107) mmol/L Carbon Dioxide 26 (22-30) mmol/L Anion Gap 16.6 H (5-15) MEQ/L BUN 20 (9-20) mg/dL Creatinine 0.95 (0.66-1.25) mg/dL Estimated GFR 89.4 ML/MIN Glucose 208 H (74-106) mg/dL POC Glucometer (74 to 106) mg/dL Lactic Acid (0.4-2.0) Calcium 9.0 (8.4-10.2) mg/dL Total Bilirubin 1.50 H (0.2-1.3) mg/dL AST 37 (17-59) U/L ALT 30 (0-50) U/L Alkaline Phosphatase 66 (38-126) U/L Serum Total Protein 8.2 (6.3-8.2) g/dL Albumin 4.3 (3.5-5.0) g/dL Amylase 64 (30-110) U/L Lipase 68 (23-300) U/L Urine Color Yellow (Yellow) Urine Appearance Clear (Clear) Urine pH 7.0 (4.6-8.0) Ur Specific Mcdermott 1.025 (1.005-1.030) Urine Protein Trace A (Negative) Urine Glucose (UA) Negative (Negative) mg/dL Urine Ketones Trace A (Negative) Urine Blood Negative (Negative) Urine Nitrite Negative (Negative) Urine Bilirubin Negative (Negative) Urine Urobilinogen 1.0 A (0.2) mg/dL Ur Leukocyte Esterase Negative (Negative) U Hyaline Cast (Auto) NONE SEEN (0-2) /LPF Urine Microscopic RBC 0-2 (0-5) /HPF Urine Microscopic WBC 0-2 (0-5) /HPF Ur Epithelial Cells None Seen (None Seen) /HPF Urine Bacteria None Seen (None Seen) /HPF Urine Culture Reflexed NO (NO) 08/09/24 08/09/24 Range/Units 10:38 10:32 WBC (4.23-9.07) x10^3/uL RBC (4.63-6.08) x10^6/uL Hgb (13.7-17.5) g/dL Hct (40.1-51.0) % MCV (79.0-92.2) fL MCH (25.7-32.2) pg MCHC (32.3-36.5) g/dL RDW (11.6-14.4) % Plt Count (163-337) x10^3/uL MPV (9.4-12.4) fL Gran % (34.0-67.9) % Immature Gran % (Auto) (0.001-0.429) % Nucleat RBC Rel Count (0.00-0.2) % Eos # (Auto) (0.04-0.54) x10^3/uL Immature Gran # (Auto) (0.001-0.031) x10^3u/L Absolute Lymphs (auto) (1.32-3.57) x10^3/uL Absolute Monos (auto) (0.30-0.82) x10^3/uL Absolute Nucleated RBC (0.00-0.012) x10^3u/L Lymphocytes % (21.8-53.1) % Monocytes % (5.3-12.2) % Eosinophils % (0.8-7.0) % Basophils % (0.2-1.2) % Absolute Granulocytes (1.78-5.38) x10^3/uL Basophils # (0.01-0.08) x10^3/uL Sodium (135-145) mmol/L Potassium (3.5-5.1) mmol/L Chloride (98-107) mmol/L Carbon Dioxide (22-30) mmol/L Anion Gap (5-15) MEQ/L BUN (9-20) mg/dL Creatinine (0.66-1.25) mg/dL Estimated GFR ML/MIN Glucose (74-106) mg/dL POC Glucometer 207 H (74 to 106) mg/dL Lactic Acid 2.0 (0.4-2.0) Calcium (8.4-10.2) mg/dL Total Bilirubin (0.2-1.3) mg/dL AST (17-59) U/L ALT (0-50) U/L Alkaline Phosphatase (38-126) U/L Serum Total Protein (6.3-8.2) g/dL Albumin (3.5-5.0) g/dL Amylase (30-110) U/L Lipase (23-300) U/L Urine Color (Yellow) Urine Appearance (Clear) Urine pH (4.6-8.0) Ur Specific Mcdermott (1.005-1.030) Urine Protein (Negative) Urine Glucose (UA) (Negative) mg/dL Urine Ketones (Negative) Urine Blood (Negative) Urine Nitrite (Negative) Urine Bilirubin (Negative) Urine Urobilinogen (0.2) mg/dL Ur Leukocyte Esterase (Negative) U Hyaline Cast (Auto) (0-2) /LPF Urine Microscopic RBC (0-5) /HPF Urine Microscopic WBC (0-5) /HPF Ur Epithelial Cells (None Seen) /HPF Urine Bacteria (None Seen) /HPF Urine Culture Reflexed (NO) - Progress Progress: improved, re-examined Progress Note: 08/09/24 11:46 My medical decision making and the assignment of moderate complexity to this patient's medical issue today is based on review of the patient's past medical history, review the patient's medication list, reviewed patient drug allergy list, history present illness and physical findings on examination. The workup in this patient includes placement of intravenous line, infusion of normal adela ine solution, urinalysis, CBC, CMP, viral swabs, CT scan of the head without contrast, magnesium level. Differential diagnosis includes but is not limited to acute intracranial abnormality, electrolyte abnormality, dehydration, urinary tract infection The CT scan of the head without contrast was interpreted by the radiologist and I reviewed the impression. The impression states microvascular white matter ischemic changes and senile changes. No intra or extra axial hematomas or parenchymal territorial hypodense areas to suggest acute ischemic insult. There are no changes when compared to similar study dated 12/03/2022. 08/09/24 14:06 I interpreted the patient's laboratory data results. Based on the laboratory data results, there are no acute, emergent issues. 08/09/24 14:07 Reevaluation of the patient shows no chest pain. No shortness of breath. No abdominal pain. Patient has no nausea. He is feeling better. The sister states that his mental status is at baseline for him. Counseled pt/family regarding: lab results, diagnosis, need for follow-up, rad results Medical Desision Making - Independent Historian Additional History obtained from: Family - Diagnostic Testing Diagnostic test were ordered, analyzed, and reviewed by me: Yes Radiological Interpretation: Reviewed by me, Teleradiologist Report - Risk of complications Low Risk: Low risk of morbidity from additional dx testing or treatment - Departure Departure Disposition: Home Clinical Impression: Mild dehydration, Vomiting Condition: Stable Critical Care Time: No Referrals: AVE MELARA [Primary Care Provider] - Follow up/PCP as directed Additional Instructions: Drink plenty of clear liquids before advancing your diet. Take your medications as prescribed. Call your primary care provider today, 08/09/2024, to make arranges for follow-up appointment for further evaluation and management Prescriptions: Ondansetron ODT 4 MG [Zofran Odt 4 mg] 4 mg PO Q6H PRN PRN #10 tablet PRN Reason: Vomiting
[2024-08-09 10:48] LABS: Absolute Neutrophil Ct (ANC) 8.04 x10^3/uL (1.78-5.38); BASOPHIL % 0.5 % (0.2-1.2); Basophil (Absolute #) 0.05 x10^3/uL (0.01-0.08); Eosinophil % 0.5 % (0.8-7.0); Eosinophil (Absolute #) 0.05 x10^3/uL (0.04-0.54); Hematocrit 45.4 % (40.1-51.0); Hemoglobin 15.4 g/dL (13.7-17.5); IMMATURE GRAN # 0.02 x10^3u/L (0.001-0.031); IMMATURE GRAN % 0.2 % (0.001-0.429); Lymphocyte (Absolute #) 1.38 x10^3/uL (1.32-3.57); Lymphocytes % 13.4 % (21.8-53.1); Mean Cell Volume 90.4 fL (79.0-92.2); Mean Corpuscular Hemoglobin 30.7 pg (25.7-32.2); Mean Corpuscular Hgb Concent. 33.9 g/dL (32.3-36.5); Mean Platelet Volume 10.7 fL (9.4-12.4); Monocyte (Absolute #) 0.74 x10^3/uL (0.30-0.82); Monocytes % 7.2 % (5.3-12.2); Neutrophil % 78.2 % (34.0-67.9); Platelet Count 196 x10^3/uL (163-337); Red Blood Count 5.02 x10^6/uL (4.63-6.08); Red Cell Distribution Width 12.8 % (11.6-14.4); White Blood Count 10.3 x10^3/uL (4.23-9.07)
[2024-08-09] MEDS ORDERED: Sodium Chloride 0.9% 1000 ML 1,000 ML ONE (10:51)
[2024-08-09] MEDS: Sodium Chloride 0.9% 1000 ML 1,000 ML IV STA (10:52)
[2024-08-09] MEDS: Zofran 4 MG/2 ML VIAL IV ONE (10:55)
[2024-08-09 11:02] LABS: ALBUMIN 4.3 g/dL (3.5-5.0); ANION GAP 16.6 MEQ/L (5-15); BILIRUBIN,TOTAL 1.5 mg/dL (0.2-1.3); Creatinine 1 0.95 mg/dL (0.66-1.25); EST GLOMERULAR FILTRATION RATE 89.4 ML/MIN; Total Protein 8.2 g/dL (6.3-8.2)
[2024-08-09 11:07] VITALS: TEMP 97.8
--- NOTE | 2024-08-09 11:21 | XRAY ---
CLINICAL HISTORY: Confusion COMPARISON: 12/03/2022. TECHNIQUE: An axial non-contrast CT scan of the brain was performed from the skull base to the high parietal region. One of the following dose-reduction techniques was utilized for this exam. Automated exposure control, adjustment of the mA and/or kV according to patient size, and use of iterative reconstruction. FINDINGS: A few tiny ill-defined [id number] areas are noted bilaterally in the subcortical and deep white matter, suggesting microvascular ischemic changes. The ventricular system, cortical sulci, and basal cisterns are prominent and consistent with senile changes. Jiménez-white matter differentiation is maintained. No midline shifts or deformity. No intracerebral or extra axial hematoma. Normal CT appearance of the posterior fossa structures, namely the cerebellar hemispheres, brainstem, and cerebellar peduncles. The bony structures in the skull base are unremarkable. There are no definite calvarium fractures. There is a mucous retention cyst in the left maxillary sinus, the rest of the sinuses are within normal limits Left posterior neck calcification. IMPRESSION: Microvascular white matter ischemic changes and senile changes. No intra or extra-axial hematomas or parenchymal territorial hypodense areas suggest acute ischemic insult. Early changes of stroke may not be detected on a CT scan. If there is a strong clinical suspicion of stroke, then an MRI with diffusion-weighted imaging is suggested. Compared to the previous no significant interval change is seen. Electronically Signed by: James Collins MD. (08/09/2024 11:17:11 EDT)
[2024-08-09] MEDS ORDERED: Sodium Chloride 0.9% 500 ML 500 ML IV ONE (12:34)
[2024-08-09] MEDS: Sodium Chloride 0.9% 500 ML 500 ML IV ONE (12:35)
[2024-08-09 13:30] LABS: Appearance Clear (Clear); Bacteria None Seen /HPF (None Seen); Bilirubin Negative (Negative); Blood Negative (Negative); Epithelial Cells None Seen /HPF (None Seen); Glucose, Urine Negative (Negative); Hyaline Casts NONE SEEN /LPF (0-2); Ketones Trace (Negative); Leukocyte Esterase Negative (Negative); Nitrite Negative (Negative); Protein,Urine Dip Trace (Negative); RBC 0-2 /HPF (0-5); Specific Gravity 1.025 (1.005-1.030)
[2024-08-09 13:31] LABS: WBC 0-2 /HPF (0-5)
[2024-08-09 14:11] VITALS: BP 120/70; PULSE 65; RESP 16; O2SAT 99
== END 2024-08-09 14:38 | disposition home or self-care (01) ==
LOC: ED 10:21
DX: E86.0 Dehydration (principal); R11.2 Nausea with vomiting, unspecified; E11.9 Type 2 diabetes mellitus without complications; E78.5 Hyperlipidemia, unspecified; I10 Essential (primary) hypertension; Z79.84 Long term (current) use of oral hypoglycemic drugs; Z79.899 Other long term (current) drug therapy
CPT/HCPCS: 36415; 70450; 80053; 81001; 82150; 82947; 83605; 83690; 85025; 96360; 96361; 99284